=== PATIENT | female | born 1955 | race African-American/Black ===

== ENCOUNTER 2017-03-10 15:54 | Emergency (ER) | payer OTHER ==
[~2017-03-10] VITALS: Ht 167.6 cm; Wt 78.0 kg
[~2017-03-10 15:54] MED LIST: ENAL20TA81 PO; HYDR-2768 PO
[2017-03-10 15:56] VITALS: BP 151/77; PULSE 50; RESP 18; TEMP 98.4; O2SAT 98
--- NOTE | 2017-03-10 16:25 | PD ---
HPI Chief Complaint: Abdominal Pain Time Seen by Provider: 16:02 Travel History International Travel<30 days: No Contact w/Intl Traveler<30days: No Traveled to known affect area: No History of Present Illness HPI 62yo F with PMH of HTN presents to the ED with c/o right lower abdominal pain for 2 days. States it was swollen and now it is better. Pain is from suprapubic to right lower abdomen to right lower back. Denies any fever, chest pain, sob, n/v, dysuria, hematuria, vaginal bleeding or discharge, focal weakness or numbness. Pain is constant, waxes and wanes. Worst with movement. Pt has never had this pain before. Pt was working out recently. PFSH Past Medical History Asthma: Yes Heart Rhythm Problems: No Cardiac Catheterization: No Cardiovascular Problems: No High Cholesterol: No Congestive Heart Failure: No Diabetes: No Diminished Hearing: No Hypertension: Yes Myocardial Infarction: No Influenza Vaccination: No Menopausal: Yes : 4 Para: 4 Tubal Ligation: Yes Past Surgical History Coronary Artery Bypass Graft: No Genitourinary Surgery: Yes (CIRCLAGE) Gynecologic Surgery: Yes ("STITCH AROUND CERVIX") Social History Alcohol Use: No Tobacco Use: No Substance Use: Yes (MARIJUANA OCC. ) Allergies-Medications (Allergen,Severity, Reaction): Coded Allergies: No Known Allergies (Verified , 03/10/17) Reported Meds & Prescriptions Reported Meds & Active Scripts Active Reported Enalapril (Enalapril Maleate) 20 Mg Tab 20 Mg PO BID Amlodipine (Amlodipine Besylate) 5 Mg Tab 5 Mg PO DAILY Carvedilol 12.5 Mg Tab 12.5 Mg PO BID Aspirin EC (Aspirin) 81 Mg Tabdr 81 Mg PO DAILY Fosamax (Alendronate Sodium) 70 Mg Tab 70 Mg PO Q7D Review of Systems Except as stated in HPI: all other systems reviewed are Neg Physical Exam Narrative GENERAL: 62yo F in mild distress. SKIN: Focused skin assessment warm/dry. HEAD: Atraumatic. Normocephalic. EYES: Pupils equal and round. No scleral icterus. No injection or drainage. ENT: No nasal bleeding or discharge. Mucous membranes pink and moist. NECK: Trachea midline. No JVD. CARDIOVASCULAR: Regular rate and rhythm. No murmur appreciated. RESPIRATORY: No accessory muscle use. Clear to auscultation. Breath sounds equal bilaterally. GASTROINTESTINAL: Abdomen soft, +TTP suprapubic and right of suprapubic. No rebound tenderness or guarding. MUSCULOSKELETAL: No obvious deformities. No clubbing. No cyanosis. No edema. NEUROLOGICAL: Awake and alert. No obvious cranial nerve deficits. Motor grossly within normal limits. Normal speech. PSYCHIATRIC: Appropriate mood and affect; insight and judgment normal. Data Data Last Documented VS Vital Signs Date Time Temp Pulse Resp B/P (MAP) Pulse Ox O2 Delivery O2 Flow Rate FiO2 03/10/17 18:44 58 16 142/85 (104) 100 Room Air 03/10/17 15:56 98.4 Orders Orders Complete Blood Count With Diff (03/10/17 16:19) Comprehensive Metabolic Panel (03/10/17 16:19) Lipase (03/10/17 16:19) Urinalysis - C+S If Indicated (03/10/17 16:19) Morphine Inj (Morphine Inj) (03/10/17 16:30) Ct Abd/Pel W Iv Contrast(Rout) (03/10/17 ) Iohexol 350 Inj (Omnipaque 350 Inj) (03/10/17 17:46) Labs Laboratory Tests Test 03/10/17 16:20 White Blood Count 4.7 TH/MM3 Red Blood Count 4.66 MIL/MM3 Hemoglobin 13.0 GM/DL Hematocrit 40.2 % Mean Corpuscular Volume 86.4 FL Mean Corpuscular Hemoglobin 28.0 PG Mean Corpuscular Hemoglobin Concent 32.4 % Red Cell Distribution Width 13.1 % Platelet Count 227 TH/MM3 Mean Platelet Volume 8.9 FL Neutrophils (%) (Auto) 33.4 % Lymphocytes (%) (Auto) 48.9 % Monocytes (%) (Auto) 7.4 % Eosinophils (%) (Auto) 9.6 % Basophils (%) (Auto) 0.7 % Neutrophils # (Auto) 1.6 TH/MM3 Lymphocytes # (Auto) 2.3 TH/MM3 Monocytes # (Auto) 0.3 TH/MM3 Eosinophils # (Auto) 0.5 TH/MM3 Basophils # (Auto) 0.0 TH/MM3 CBC Comment DIFF FINAL Differential Comment Urine Color YELLOW Urine Turbidity CLEAR Urine pH 6.5 Urine Specific [place] 1.020 Urine Protein TRACE mg/dL Urine Glucose (UA) NEG mg/dL Urine Ketones NEG mg/dL Urine Occult Blood NEG Urine Nitrite NEG Urine Bilirubin NEG Urine Urobilinogen LESS THAN 2.0 MG/DL Urine Leukocyte Esterase TRACE Urine RBC 1 /hpf Urine WBC LESS THAN 1 /hpf Urine Mucus FEW /lpf Microscopic Urinalysis Comment CULT NOT INDICATED Blood Urea Nitrogen 10 MG/DL Creatinine 0.92 MG/DL Random Glucose 107 MG/DL Total Protein 7.1 GM/DL Albumin 3.7 GM/DL Calcium Level 8.5 MG/DL Alkaline Phosphatase 89 U/L Aspartate Amino Transf (AST/SGOT) 18 U/L Alanine Aminotransferase (ALT/SGPT) 23 U/L Total Bilirubin 0.3 MG/DL Sodium Level 140 MEQ/L Potassium Level 4.4 MEQ/L Chloride Level 108 MEQ/L Carbon Dioxide Level 27.1 MEQ/L Anion Gap 5 MEQ/L Estimat Glomerular Filtration Rate 75 ML/MIN Lipase 164 U/L MDM Medical Decision Making Medical Screen Exam Complete: Yes Emergency Medical Condition: Yes Differential Diagnosis Cystitis vs. colitis vs. appendicitis vs. musculoskeletal pain Narrative Course 62yo F with abdominal pain after exercising. Denies any fever, nausea, vomiting. Labs reviewed, no leukocytosis. Lipase normal. CMP unremarkable. UA negative. CTa/p showed no definitive findings. Normal appearing appendix. Pt reevaluated at bedside and had refused morphine stating her abdominal pain has improved. Return precautions given. Diagnosis Primary Impression: Abdominal pain Qualified Codes: R10.30 - Lower abdominal pain, unspecified Patient Instructions: General Instructions Departure Forms: Tests/Procedures Additional Instructions: Please follow up with your primary care physician in 3-7 days. Return to the ED if symptoms worsen. Med/Other Pt SpecificInfo: Prescription(s) given Scripts Acetaminophen (Tylenol) 325 Mg Tab 650 MG PO Q6H Y for PAIN SCALE 1 TO 4, #20 TAB 0 Refills Prov: Marlene Guardado 03/10/17 Disposition: 01 DISCHARGE HOME Condition: Stable GuardadoPriti lopezhans MULLEN Mar 10, 2017 16:25
[2017-03-10] MEDS ORDERED: MORPHINE SULFATE 4 MG/ML INJ IV PUSH ONE (16:30)
[2017-03-10] MEDS ORDERED: FOSA70TA PO (16:33)
[2017-03-10] MEDS ORDERED: ENAL20TA PO (16:33)
[2017-03-10] MEDS ORDERED: CARV12.52 PO (16:33)
[2017-03-10] MEDS ORDERED: ASPI81TA11 PO (16:33)
[2017-03-10] MEDS ORDERED: AMLO5TAB2 PO (16:33)
[2017-03-10 17:08] LABS: AUTOMATED NEUTROPHIL # 1.6 TH/MM3 (1.8-7.7); BASOPHIL % 0.7 % (0.0-2.0); EOSINOPHIL # 0.5 TH/MM3 (0-0.4); EOSINOPHIL % 9.6 % (0.0-4.0); HEMATOCRIT 40.2 % (35.0-46.0); HEMO FLAGS DIFF FINAL; LYMPH % 48.9 % (9.0-44.0); LYMPHOCYTE # 2.3 TH/MM3 (1.0-4.8); MEAN CELL VOLUME 86.4 FL (80.0-100.0); MEAN CORPUSCULAR HGB CONC 32.4 % (32.0-36.0); MONO % 7.4 % (0.0-8.0); NEUT % 33.4 % (16.0-70.0); PLATELET COUNT 227 TH/MM3 (150-450); RED BLOOD COUNT 4.66 MIL/MM3 (4.00-5.30); RED CELL DISTRIBUTION WIDTH 13.1 % (11.6-17.2); WHITE BLOOD COUNT 4.7 TH/MM3 (4.0-11.0)
[2017-03-10 17:09] LABS: BLOOD, URINE NEG (NEG); COMMENT (UR) CULT NOT INDICATED; CULTURE IF INDICATED CULT NOT INDICATED; GLUCOSE,URINE NEG (NEG); KETONE, URINE NEG (NEG); MUCUS URINE FEW /lpf (OCC); NITRITE,URINE NEG (NEG); PH, URINE 6.5 (5.0-8.5); URINE COLOR YELLOW (YELLW/STRAW)
[2017-03-10 17:28] LABS: ALT (GPT) 23 U/L (10-53); ANION GAP 5 MEQ/L (5-15); AST (GOT) 18 U/L (15-37); BICARBONATE 27.1 MEQ/L (21.0-32.0); BLOOD UREA NITROGEN 10 MG/DL (7-18); CHLORIDE 108 MEQ/L (98-107); GLOMERULAR FILTRATION RATE 75 ML/MIN (>89); POTASSIUM 4.4 MEQ/L (3.5-5.1); SODIUM (NA) 140 MEQ/L (136-145)
[2017-03-10 17:31] LABS: ALKALINE PHOSPHATASE 89 U/L (45-117); TOTAL BILIRUBIN ADULT 0.3 MG/DL (0.2-1.0)
[2017-03-10] MEDS ORDERED: IOHEXOL 350 MG/ML 10 ML VIAL (for RAD DIAG) IVCONTRAST ONE (17:46)
[2017-03-10 18:44] VITALS: BP 142/85; PULSE 58; RESP 16; O2SAT 100
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
[2017-03-10] MEDS ORDERED: TYLE325T PO (18:57)
== END 2017-03-10 19:05 | disposition home or self-care (01) ==
LOC: NEPE 15:54
DX: R10.30 Lower abdominal pain, unspecified (principal); J45.909 Unspecified asthma, uncomplicated; I10 Essential (primary) hypertension
CPT/HCPCS: 74177; 80053; 81001; 83690; 85025; 96374; 99285; Q9967

== ENCOUNTER 2017-08-01 23:12 | Emergency (ER) | payer OTHER ==
[~2017-08-01 23:12] MED LIST changes: +AMLO5TAB2 PO; +ASPI81TA23 PO; +CARV12.52 PO; +ENAL20TA PO; -ENAL20TA81 PO; +FOSA70TA PO; -HYDR-2768 PO; +TYLE325T PO
[2017-08-01 23:15] VITALS: BP 131/86; PULSE 84; RESP 18; TEMP 98.7; O2SAT 99
[2017-08-02] MEDS ORDERED: HYDR25TA5 PO (00:01)
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
[2017-08-02 00:23] VITALS: BP 130/80; PULSE 80; RESP 16; O2SAT 98
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
[2017-08-02] MEDS ORDERED: IBUP-232 PO (01:32)
[2017-08-02 01:39] VITALS: BP 141/90
[2017-08-02] MEDS ORDERED: IBUPROFEN 600 MG TAB PO ONE (01:45)
== END 2017-08-02 02:00 | disposition home or self-care (01) ==
LOC: PHED 23:12
DX: T14.8XXA Other injury of unspecified body region, initial encounter (principal); I10 Essential (primary) hypertension; J45.909 Unspecified asthma, uncomplicated; V49.40XA Driver injured in collision with unspecified motor vehicles in traffic accident, initial encounter; Z79.82 Long term (current) use of aspirin; Z79.899 Other long term (current) drug therapy
CPT/HCPCS: 70450; 72125; 72128; 72131; 72170; 73610; 99284